=== PATIENT | male | born 2000 | race Caucasian/White ===

== ENCOUNTER 2021-05-03 19:33 | Emergency (ER) | payer BC, OTHER ==
[2021-05-03 20:37] VITALS: BP 123/71; PULSE 84
--- NOTE | 2021-05-03 21:41 | EDM.PDOC ---
ED HPI GENERAL MEDICAL PROBLEM - General Chief Complaint: Drug or Alcohol Abuse Stated Complaint: DEHYDRATION Time Seen by Provider: 05/03/21 21:20 Source of Information: Reports: Patient, RN, RN Notes Reviewed History Limitations: Reports: No Limitations - History of Present Illness INITIAL COMMENTS - FREE TEXT/NARRATIVE: Marshal is a 20 y/o male who presents to the ED via personal vehicle with complaints of general malaise, sore throat, and inability to sleep. The patient reports he has been drinking large quantities of beer for the past three days, his last drink was yesterday morning. Additionally, he notes he took a friends Ritalin the past two nights as he felt sleepy and "... wasn't ready to go to bed yet." He denies fever, shaking chills, cough, sinus congestion, chest pain, shortness of breath, abdominal pain, vomiting, or diarrhea. He does attest to palpitations and nausea. Treatments TRANSCRIPTION: Reports: Other (see below) Other Treatments TRANSCRIPTION: none Throat Pain Score (Numeric/FACES): 5 - Related Data Allergies Allergy/AdvReac Type Severity Reaction Status Date / Time No Known Allergies Allergy Verified 05/03/21 20:37 Home Meds: Home Meds . [No Known Home Meds] 04/21/15 [History] Past Medical History - Past Health History Medical/Surgical History: Denies Medical/Surgical History Psychiatric History: Reports: Anxiety Other Psychiatric History: patient state self diagnosed anxiety Social & Family History - Family History Family Medical History: No Pertinent Family History - Caffeine Use Caffeine Use: Reports: Other Other Caffeine Use: pre workout drink - high caffeine - Recreational Drug Use Recreational Drug Use: Yes Drug Use in Last 12 Months: Yes ED ROS GENERAL - Review of Systems Review Of Systems: Comprehensive ROS is negative, except as noted in HPI. ED EXAM, GENERAL - Physical Exam Exam: See Below Exam Limited By: Other (Ill-appearing) General Appearance: Alert, No Apparent Distress Eye Exam: Bilateral Eye: EOMI, Normal Inspection, PERRL (3mm) Ears: Normal External Exam, Normal Canal, Hearing Grossly Normal, Normal TMs Ear Exam: Bilateral Ear: Auricle Normal, Canal Normal, TM normal Nose: Normal Inspection, Normal Mucosa, No Blood Throat/Mouth: Normal Teeth, Normal Voice, No Airway Compromise, Inflammation (Erythema to posterior oropharynx). No: Normal Lips (Dry, cracked) Head: Atraumatic, Normocephalic Neck: Normal Inspection, Supple, Non-Tender, Full Range of Motion, Lymphadenopathy (L) (Anterior cervical chain). No: Lymphadenopathy (R) Respiratory/Chest: No Respiratory Distress, Lungs Clear, Normal Breath Sounds, No Accessory Muscle Use, Chest Non-Tender Cardiovascular: Normal Peripheral Pulses, Regular Rate, Rhythm, No Edema, No Gallop, No JVD, No Murmur, No Rub Peripheral Pulses: 2+: Radial (L), Radial (R) GI/Abdominal: Normal Bowel Sounds, Soft, Non-Tender, No Distention, No Abnormal Bruit, No Mass, Pelvis Stable (Male) Exam: Deferred Rectal (Males) Exam: Deferred Back Exam: Normal Inspection, Full Range of Motion. No: CVA Tenderness (L), CVA Tenderness (R) Extremities: Normal Inspection, Normal Range of Motion, Non-Tender, Normal Capillary Refill, No Pedal Edema Neurological: Alert, Oriented, CN II-XII Intact, Normal Cognition, Normal Gait, No Motor/Sensory Deficits Psychiatric: Normal Affect, Normal Mood Skin Exam: Warm, Dry, Intact, Normal Color, No Rash. No: Cyanosis, Ecchymosis, Erythema, Jaundice, Mottled, Pallor, Petechiae Course - Vital Signs Last Recorded V/S: Last Vital Signs Temp 98.5 F 05/03/21 19:52 Pulse 84 05/03/21 19:52 Resp 16 05/03/21 19:52 BP 123/71 05/03/21 19:52 Pulse Ox 99 05/03/21 19:52 - Orders/Labs/Meds Labs: Laboratory Tests 05/03/21 05/03/21 Range/Units 20:38 20:38 Urine Color Yellow (YELLOW) Urine Appearance Clear (CLEAR) Urine pH 7.0 (5.0-9.0) Ur Specific Fries 1.025 (1.005-1.030) Urine Protein Negative (NEGATIVE) Urine Glucose (UA) Negative (NEGATIVE) Urine Ketones Negative (NEGATIVE) Urine Occult Blood Negative (NEGATIVE) Urine Nitrite Negative (NEGATIVE) Urine Bilirubin Negative (NEGATIVE) Urine Urobilinogen 0.2 (0.2-1.0) mg/dL Ur Leukocyte Esterase Negative (NEGATIVE) Urine Opiates Screen Negative (NEGATIVE) Ur Oxycodone Screen Negative (NEGATIVE) Urine Methadone Screen Negative (NEGATIVE) Ur Barbiturates Screen Negative (NEGATIVE) U Tricyclic Antidepress Negative (NEGATIVE) Ur Phencyclidine Scrn Negative (NEGATIVE) Ur Amphetamine Screen Negative (NEGATIVE) U Methamphetamines Scrn Negative (NEGATIVE) Urine MDMA Screen Negative (NEGATIVE) U Benzodiazepines Scrn Negative (NEGATIVE) Urine Cocaine Screen Negative (NEGATIVE) U Marijuana (THC) Screen Negative (NEGATIVE) Meds: Medications Discontinued Medications Generic Name Dose Route Start Last Admin Trade Name Mona PRN Reason Stop Dose Admin Amoxicillin 500 mg 05/03/21 21:36 05/03/21 21:55 Amoxicillin 500 Mg Cap PO 05/03/21 21:37 500 mg ONETIME ONE Administration Sodium Chloride 1,000 mls @ 999 mls/hr 05/03/21 21:36 05/03/21 21:55 Normal Saline IV 05/03/21 22:36 999 mls/hr .BOLUS ONE Administration - Re-Assessments/Exams Free Text/Narrative Re-Assessment/Exam: 05/03/21 NS 1L bolus administered while labs pending. Findings of examination and lab work reviewed with patient. Will treat strep pharyngitis with amoxicillin. Discussed supportive cares for strep as well as dehydration. Patient instructed to follow up with primary care provider regarding today's visit should symptoms persist or worsen. Red flag signs and symptoms which would warrant reevaluation reviewed. Patient verbalized understanding and agreement with the plan of care. Departure - Departure Time of Disposition: 22:25 Disposition: Home, Self-Care 01 Condition: Good Clinical Impression: Alcohol consumption binge drinking, Strep pharyngitis - Discharge Information *PRESCRIPTION DRUG MONITORING PROGRAM REVIEWED*: Not Applicable *COPY OF PRESCRIPTION DRUG MONITORING REPORT IN PATIENT ELMO: Not Applicable Instructions: Pharyngitis, [id number] Referrals: Joya Norwood [Primary Care Provider] - Forms: ED Department Discharge Additional Instructions: Rx: amoxicillin 1.) Take all of your antibiotic until gone, even as symptoms improve. 2.) Drink plenty of water to stay hydrated. 3.) Do not take medications that are not prescribed to you. 4.) Do not drink alcohol to excess. Sepsis Event Note (ED) - Evaluation Sepsis Screening Result: No Definite Risk
[2021-05-03] MEDS: Amoxicillin 500 MG Cap PO ONE (21:55)
[2021-05-03] MEDS: Sodium Chloride 0.9% 1,000 ML IV ONE (21:55)
== END 2021-05-03 22:30 | disposition home or self-care (01) ==
LOC: DL.ED 19:33
DX: J02.0 Streptococcal pharyngitis (principal); F10.10 Alcohol abuse, uncomplicated
CPT/HCPCS: 80305; 81003; 87430; 99283; A9270; J7030